=== PATIENT | female | born 1990 | race Hispanic/Latino ===

== ENCOUNTER → 2017-06-15 | Outpatient (CLI) | payer OTHER ==
[2017-06-22 06:20] LABS: ALLERGEN MUCOR RACEMOSUS <0.10 kU/L (Class 0)
== END | disposition home or self-care (01) ==
LOC: RAH 09:35
PROVIDERS: ATTEND Obstetrics & Gynecology
DX: J30.1 Allergic rhinitis due to pollen (principal)
CPT/HCPCS: 36415; 82785; 86003; 86005

== ENCOUNTER 2019-04-09 07:56 | Day surgery (SDC) | payer OTHER ==
[~2019-04-09] VITALS: Ht 157.5 cm; Wt 59.0 kg
[~2019-04-09 07:56] MED LIST: ALBU90AE IH; SODIUM CHLORIDE 0.9% 1000ML 1,000 ML IV ONE
[2019-04-09 09:40] VITALS: BP 123/69
[2019-04-09] MEDS ORDERED: PROPOFOL 10 MG/ML 20ML VIAL IV ONE ×2 (10:33)
[2019-04-09] MEDS ORDERED: LIDOCAINE HCL 1% 20 ML VIAL ONE (10:34)
[2019-04-09 10:46] VITALS: BP 102/63
[2019-04-09 10:51] VITALS: BP 105/64
[2019-04-09 10:56] VITALS: BP 108/66
[2019-04-09 11:01] VITALS: BP 106/68
[2019-04-09 11:06] VITALS: BP 104/61
== END 2019-04-09 11:16 | disposition home or self-care (01) ==
LOC: ENDO 07:56 → DAH 07:56 → ENDO 11:16
PROVIDERS: ATTEND Internal Medicine
DX: K59.09 Other constipation (principal); K64.0 First degree hemorrhoids; J45.909 Unspecified asthma, uncomplicated; Z79.899 Other long term (current) drug therapy; Z90.49 Acquired absence of other specified parts of digestive tract; Z88.8 Allergy status to other drugs, medicaments and biological substances; Z80.0 Family history of malignant neoplasm of digestive organs
CPT/HCPCS: 45378; 81025; A4215; A4221; A4222; A4223; A4606; A4615; A4663; J2704 ×2; J7030